=== PATIENT | female | born 1995 | race Two or more races ===

== ENCOUNTER 2017-05-02 01:26 | Emergency (ER) | payer MEDICAID ==
[~2017-05-02] VITALS: Ht 154.9 cm; Wt 90.7 kg
[2017-05-02 01:40] VITALS: BP 146/104
[2017-05-02] MEDS ORDERED: ALUM & MAG HYDROX-SIMETH LIQ(MAALOX) 30 ML PO ONE (06:00)
[2017-05-02] MEDS ORDERED: LIDOCAINE VISCOUS 2% 15ML UD PO ONE (06:00)
== END 2017-05-02 06:14 | disposition home or self-care (01) ==
LOC: ER 01:29
DX: K21.9 Gastro-esophageal reflux disease without esophagitis (principal)